=== PATIENT | female | born 1970 | race Caucasian/White ===

== ENCOUNTER 2017-08-07 17:10 | Emergency (ER) | payer OTHER ==
--- NOTE | 2017-08-07 17:33 | EDM.PDOC ---
ED HPI GENERAL MEDICAL PROBLEM - General Chief Complaint: General Stated Complaint: chills, fever, immuno suppressed Time Seen by Provider: 08/07/17 17:20 Source of Information: Reports: Patient, Old Records ([facility] chart/EMR) History Limitations: Reports: No Limitations - History of Present Illness INITIAL COMMENTS - FREE TEXT/NARRATIVE: The patient drove herself to the emergency room via private automobile for evaluation of nonspecific fever and chills with symptoms starting at about 11: 30 a.m. this morning. Note that the patient did have a fever of 100.2 at about 15:30 hours this afternoon with to OTC Aleve taken at that time. Patient did have her routine blood work this morning, which did show some significant leukopenia with WBCs of only 1.9 at that time. Her medical professionals recommended that she come to the emergency room for further evaluation to rule out any possible current infection. The patient denies any chest pain/pressure, heart flutter, dizziness, orthostasis, orthopnea, diaphoresis, paresthesias, recent decreased exercise tolerance, or any other anginal-type symptoms. No recent history of abdominal pain, heartburn, nausea, diarrhea, melena, gross hematochezia, or any food intolerance, including fatty foods, etc.. She denies any current gross hematuria, dysuria, colic, or other UTI symptoms. The patient also denies any recent cough, wheezing, dyspnea, etc.. No recent history of known exposure to infection. No history of recent visual changes, diplopia, change in mental status, or other change in neurological status, although nonspecific 6/10 bilateral frontal headache at this time similar to previous episodes. Onset: Today, Gradual Onset Date: 08/07/17 Onset Time: 11:30 Duration: Other (No pain) Quality: Reports: Ache, Same as Previous Episode Severity: Mild Improves with: Reports: None Worsens with: Reports: None Context: Reports: Other (As above) Associated Symptoms: Reports: Fever/Chills. Denies: Confusion, Chest Pain, Cough, Diaphoresis, Headaches, Loss of Appetite, Malaise, Nausea/Vomiting, Rash , Shortness of Breath, Syncope, Weakness Treatments OFFICE PROFESSIONAL: Reports: NSAIDS (As above) Headache Pain Score (Numeric/FACES): 6 - Related Data Allergies Allergy/AdvReac Type Severity Reaction Status Date / Time Sulfa (Sulfonamide Allergy Other Verified 08/07/17 17:14 Antibiotics) Home Meds: Home Meds Cholecalciferol (Vitamin D3) [Vitamin D3] 400 unit PO DAILY 07/20/17 [History] Citalopram [Citalopram HBr] 20 mg PO DAILY 07/20/17 [History] Ethinyl Estradiol/Drospirenone [[place]cell[place] 3 MG-0.03 MG] 1 each PO DAILY 07/20/17 [ History] Fish Oil/DHA/EPA [Fish Oil 1,200 MG] 2,400 mg PO DAILY 07/20/17 [History] Vitamin B Complex 1 each PO DAILY 07/20/17 [History] Tbo-Filgrastim [Granix] 300 mcg SUBCUT ASDIRECTED 08/07/17 [History] Past Medical History HEENT History: Reports: Impaired Vision, Other (See Below). Denies: Allergic Rhinitis, Cataract, Glaucoma, Hard of Hearing, Macular Degeneration, Retinal Detachment Other HEENT History: Patient wears glasses. Dry eye syndrome from Sjogren's syndrome. Cardiovascular History: Reports: None. Denies: Afib, Aneurysm, Arrhythmia, Blood Clots/VTE/DVT, CAD, Cardiomyopathy, Heart Murmur, High Cholesterol, Hypertension, [place], Syncope Respiratory History: Reports: COPD, Other (See Below). Denies: Intubation, Previous, PE, Sleep Apnea Other Respiratory History: COPD by chest x-ray Gastrointestinal History: Reports: GERD, Other (See Below). Denies: Celiac Disease, Cholelithiasis, Chronic Constipation, Chronic Diarrhea, Colon Polyp, Fecal Incontinence, Gastritis, GI Bleed, Hepatitis, Irritable Bowel Syndrome, Jaundice, Pancreatitis, PUD Other Gastrointestinal History: History of fungal distal esophagitis in June 2017 requiring hospitalization. Sjogren's syndrome. Genitourinary History: Reports: None. Denies: Acute Renal Failure, Chronic Renal Insuffiency, Renal Calculus, STD, Urinary Incontinence, UTI, Recurrent MEDICAL SONOGRAPHER History: Reports: , Spontaneous , Other (See Below). Denies: Dysfunctional Uterine Bleeding, Endometriosis : 3 Para: 2 LMP (Approximate): 2 Weeks Other OB/BYN History: First trimester SAB without procedures required. Otherwise , Full term without complications during pregnancies or deliveries Musculoskeletal History: Reports: Arthritis, Back Pain, Chronic, Fracture, Osteoarthritis, Other (See Below). Denies: Gout, RA, SLE Other Musculoskeletal History: Sjogren's syndrome. Right wrist fracture in 2001. Either third or fourth right metatarsal fracture in 1987. Neurological History: Reports: Headaches, Chronic. Denies: Cerebral Aneurysms, Concussion, CVA, Head Trauma, Migraines, MS, Parkinson's, Seizure, TIA Psychiatric History: Reports: Anxiety, Depression. Denies: Abuse, Victim of, ADD, ADHD, Addiction, Psych Hospitalization(s), Psychosis, PTSD, Suicide Attempt , Suicidal Ideation Endocrine/Metabolic History: Reports: None. Denies: Diabetes, Gestational, Diabetes, Type I, Diabetes, Type II, Diabetes Mellitus, Type 3c, Hypothyroidism , IDDM, Multinodular Thyroid Hematologic History: Reports: Other (See Below). 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 Denies: AIDS, HIV, SLE Other Immunologic History: Chronic leukopenia as above Oncologic (Cancer) History: Denies: Basal Cell Carcinoma, Breast, Cervix, Colon , Hodgkin's Lymphoma, Leukemia, Lymphoma, Malignant Melanoma, Non-Hodgkin's Lymphoma, Squamous Cell Carcinoma Dermatologic History: Reports: None. Denies: Eczema, Melanoma - Infectious Disease History Infectious Disease History: Reports: Chicken Pox. Denies: C-Difficile, Measles , Meningitis, Mononucleosis, MRSA, Mumps, Pertussis (Whooping Cough), Rheumatic Fever, Rubella, Scarlet Fever, Shingles, TB, VRE - Past Surgical History Head Surgeries/Procedures: Reports: None HEENT Surgical History: Reports: Oral Surgery, Other (See Below). Denies: Adenoidectomy, Cataract Surgery, Eye Surgery, Laser Surgery, LASIK, Myringotomy w Tube(s), Naso-Sinus Surgery, Polypectomy, Tonsillectomy Other HEENT Surgeries/Procedures: [place] teeth extraction 4 in 2003 Cardiovascular Surgical History: Reports: None. Denies: Varicose Respiratory Surgical History: Reports: None. Denies: Thoracentesis GI Surgical History: Reports: Appendectomy, EGD, Other (See Below). Denies: Cholecystectomy, Colonoscopy, Hernia, Abdominal, Hernia, Inguinal, Hernia Repair /Other, Polypectomy Other GI Surgeries/Procedures: Appendectomy at age 15. EGD in June 2017. Female Surgical History: Reports: Other (See Below). Denies: Breast Biopsy, Section, D&C, Hysterectomy, Salpingo-Oophorectomy, Tubal Ligation Other Female Surgeries/Procedures: Left Renal kidney donation in 2006 Endocrine Surgical History: Reports: None. Denies: Thyroid Biopsy Neurological Surgical History: Reports: None. Denies: C-Spine, Discectomy, Laminectomy, Lumbar Spine, Sacral Spine, Spinal Fusion, Vertebroplasty Musculoskeletal Surgical History: Reports: None. Denies: Arthroscopic Procedure , Carpal Tunnel, Ganglion Cyst, Joint Replacement, ORIF, Shoulder Surgery Oncologic Surgical History: Reports: Bone Marrow Aspiration, Other (See Below) Other Oncologic Surgeries/Procedures: Bone marrow needle aspiration biopsy in July 2017 for workup of her leukopenia Dermatological Surgical History: Reports: None - Past Imaging History Past Imaging History: Reports: CAT Scan (CT of the chest in June 2017) Social & Family History - Tobacco Use Smoking Status *Q: Never Smoker Tobacco Use Within Last Twelve Months: No Used Tobacco, but Quit: No Smoking Cessation Information Provided To Patient: No Second Hand Smoke Exposure: No Second Hand Smoke Education Provided: No - Caffeine Use Caffeine Use: Reports: Coffee (20 ounces per day). Denies: Energy Drinks, Soda , Tea - Alcohol Use Alcohol Use History: Yes Days Per Week of Alcohol Use: 1 (No previous DWIs, problems with alcohol abuse, etc.) Number of Drinks Per Day: 2 (Usually wine) Total Drinks Per Week: 2 Alcohol Use in Last Twelve Months: Yes Alcohol Use Frequency: Weekly - Recreational Drug Use Recreational Drug Use: No Drug Use in Last 12 Months: No Recreational Drug Type: Denies: Amphetamines (Speed), Cocaine, Heroin, Inhalants (Glues, Solvents, Aerosols), LSD (Acid), Marijuana/Hashish, Methamphetamine, Morphine, Oxycodone - Living Situation & Occupation Living situation: Reports: (2000, 2 children), with Family Occupation: Employed (case work aide) ED ROS GENERAL - Review of Systems Review Of Systems: ROS reveals no pertinent complaints other than HPI. ED EXAM, GENERAL - Physical Exam Exam: See Below Exam Limited By: No Limitations General Appearance: Alert, WD/WN, No Apparent Distress Eye Exam: Bilateral Eye: EOMI, Normal Inspection, PERRL Ears: Normal External Exam, Normal Canal, Hearing Grossly Normal, Normal TMs Nose: Normal Inspection, Normal Mucosa, No Blood Throat/Mouth: Normal Inspection, Normal Lips, Normal Teeth, Normal Gums, Normal Oropharynx, Normal Voice, No Airway Compromise. No: Dysphagia, Inflammation, Perioral Cyanosis Head: Atraumatic, Normocephalic. No: Facial Swelling, Facial Tenderness, Sinus Tenderness Neck: Normal Inspection, Supple, Non-Tender, Full Range of Motion. No: Lymphadenopathy (L), Lymphadenopathy (R), Thyromegaly Respiratory/Chest: No Respiratory Distress, Lungs Clear, Normal Breath Sounds, No Accessory Muscle Use, Chest Non-Tender. No: Pleural Rub, Retractions Cardiovascular: Normal Peripheral Pulses, Regular Rate, Rhythm, No Edema, No Gallop, No JVD, No Murmur, No Rub. No: Gallop/S3, Gallop/S4, Friction Rub Peripheral Pulses: 2+: Radial (L), Radial (R) GI/Abdominal: Normal Bowel Sounds, Soft, Non-Tender, No Organomegaly, No Distention, No Abnormal Bruit, No Mass, Pelvis Stable. No: Guarding (Female) Exam: Deferred Rectal (Female) Exam: Deferred Back Exam: Normal Inspection, Full Range of Motion. No: CVA Tenderness (L), CVA Tenderness (R), Muscle Spasm Extremities: Normal Inspection, Normal Range of Motion, Non-Tender, No Pedal Edema, Normal Capillary Refill. No: Joselo's Sign Neurological: Alert, Oriented, CN II-XII Intact, Normal Cognition, Normal Gait, No Motor/Sensory Deficits, Other (No clinical orthostasis) Psychiatric: Normal Affect, Normal Mood Skin Exam: Warm, Dry, Intact, Normal Color, No Rash. No: Diaphoretic, Ecchymosis, Lymphangitis, Petechiae, Wound/Incision Lymphatic: No Adenopathy Course - Vital Signs Last Recorded V/S: Last Vital Signs Temp 36.8 C 08/07/17 17:14 Pulse 86 08/07/17 17:14 Resp 20 08/07/17 17:14 BP 103/64 08/07/17 17:14 Pulse Ox 97 08/07/17 17:14 Vital Signs - 24 hr 08/07/17 17:14 Temperature [ 36.8 C Oral] Pulse, 86 Peripheral [ Brachial] Respiratory 20 Rate Blood Pressure 103/64 [Upper Arm] O2 Sat by Pulse 97 Oximetry - Orders/Labs/Meds Orders: Active Orders 24 hr Category Date Time Status Chest 2V [CR] Urgent Exams 08/07/17 17:33 Ordered CULTURE BLOOD [BC] Stat Lab 08/07/17 17:35 Ordered CULTURE BLOOD [BC] Stat Lab 08/07/17 17:45 Received CULTURE STREP A CONFIRMATION [RM] Stat Lab 08/07/17 18:00 Results CULTURE URINE [RM] Routine Lab 08/07/17 17:33 Ordered STREP SCRN A RAPID W CULT CONF [RM] Stat Lab 08/07/17 17:35 Ordered Blood Culture x2 Reflex Set [OM.PC] Urgent Oth 08/07/17 17:33 Ordered Obtain Past Medical Record [OM.PC] Routine Oth 08/07/17 17:35 Active Labs: Laboratory Tests 08/07/17 08/07/17 08/07/17 Range/Units 17:45 17:45 18:07 Sodium 136 (136-145) mmol/L Potassium 4.1 (3.5-5.1) mmol/L Chloride 100 (98-107) mmol/L Carbon Dioxide 26.6 (21.0-32.0) mmol/L BUN 10 (7-18) mg/dL Creatinine 0.72 (0.51-1.17) mg/dL Est Cr Clr Drug Dosing 87.85 mL/min Estimated GFR (MDRD) > 60 mL/min Glucose 109 H (74-106) mg/dL Lactic Acid 1.5 (0.4-2.0) mmol/L Calcium 9.1 (8.5-10.1) mg/dL Total Bilirubin 0.2 (0.2-1.0) mg/dL AST 35 (15-37) U/L ALT 30 (12-78) U/L Alkaline Phosphatase 83 (46-116) IU/L Total Protein 8.4 H (6.4-8.2) g/dL Albumin 3.1 L (3.4-5.0) g/dL Specimen Type Urincc Urine Color Yellow Urine Appearance Clear Urine pH 7.0 (5.0-9.0) Ur Specific [place] 1.010 (1.005-1.030) Urine Protein Negative (NEGATIVE) mg/dL Urine Glucose (UA) Negative (NEGATIVE) mg/dL Urine Ketones Negative (NEGATIVE) mg/dL Urine Occult Blood Negative (NEGATIVE) Urine Nitrite Negative (NEGATIVE) Urine Bilirubin Negative (NEGATIVE) Urine Urobilinogen 1.0 (0.2-1.0) E.U./dL Ur Leukocyte Esterase Negative (NEGATIVE) Urine RBC 0-5 /HPF Urine WBC 0-5 /HPF Ur Epithelial Cells Few /LPF Urine Bacteria Few (NONE TO FEW) /HPF CBC earlier this morning showed WBCs of 1.9 with hemoglobin of 12.1, MCV 88.5, platelets 253, elevated RDW of 15.9, decreased neutrophils of 5.7% and increased lymphocytes of 69.8% Blood cultures 2 and urine specimens collected for culture and sensitivity Microbiology 08/07/17 18:00 Group A Streptococcus Rapid Screen - Final Throat NEGATIVE STREP A SCREEN 08/07/17 18:00 Influenza Type A Antigen Screen - Final Nasal, Left NEGATIVE INFLUENZA A VIRUS AG Influenza Type B Antigen Screen - Final NEGATIVE INFLUENZA B VIRUS AG Meds: None - Radiology Interpretation Free Text/Narrative:: Chest x-ray, PA and lateral, shows mild COPD changes with no pulmonary infiltrates, pneumothorax, etc. Mild osteoarthritic changes noted. Somewhat small and hypoplastic heart. Departure - Departure Time of Disposition: 18:45 Disposition: Home, Self-Care 01 Condition: Good Clinical Impression: Leukopenia, Peptic reflux disease, COPD (chronic obstructive pulmonary disease) , Mixed anxiety depressive disorder, Sjogrens syndrome, Hypoalbuminemia - Discharge Information Referrals: Carlene Khoury MD [Primary Care Provider] - Forms: ED Department Discharge Additional Instructions: 1. Follow up with your regular provider in 7-10 days as needed, if symptoms persist. 2. Hygiene precautions and avoidance infections as previously recommended 3. Otherwise follow-up with your medical professionals as already scheduled - Problem List & Annotations (1) Leukopenia SNOMED Code(s): 13123114, 417974655 Code(s): D72.819 - DECREASED WHITE BLOOD CELL COUNT, UNSPECIFIED Status: Acute Priority: High Onset Date: 08/07/17 Annotation/Comment:: Mild low- grade fever today, improved from earlier Aleve therapy as above. Likely mild beginning URI with very borderline sinus headaches. Observe for now. Continue close follow-up by her medical professionals and regular provider. Her Granix injection is already ordered and scheduled in this facility for tomorrow. Hygiene issues, etc. discussed. She is not currently working secondary to her leukopenia. Qualifiers: Leukopenia type: neutropenia Neutropenia type: other Qualified Code(s): D70.8 - Other neutropenia (2) COPD (chronic obstructive pulmonary disease) SNOMED Code(s): 65395531 Code(s): J44.9 - CHRONIC OBSTRUCTIVE PULMONARY DISEASE, UNSPECIFIED Status : Chronic Priority: Medium Annotation/Comment:: Stable by history with no significant bronchitic type symptoms despite low-grade fever at this time. Note chest x-ray results as above. Qualifiers: COPD type: emphysema Emphysema type: panlobular Qualified Code(s): J43.1 - Panlobular emphysema (3) Mixed anxiety depressive disorder SNOMED Code(s): 048795815 Code(s): F41.8 - OTHER SPECIFIED ANXIETY DISORDERS Status: Chronic Priority: Medium Annotation/Comment:: Stable by history (4) Peptic reflux disease SNOMED Code(s): 892706355 Code(s): K21.9 - GASTRO-ESOPHAGEAL REFLUX DISEASE WITHOUT ESOPHAGITIS Status: Chronic Priority: Medium Annotation/Comment:: Stable by history (5) Hypoalbuminemia SNOMED Code(s): 701946340 Code(s): E88.09 - OTH DISORDERS OF PLASMA-PROTEIN METABOLISM, NEC Status: Acute Priority: Medium Onset Date: 08/07/17 Annotation/Comment:: Observe for now. Consider high-protein Glucerna supplements. (6) Sjogrens syndrome SNOMED Code(s): 67047093 Code(s): M35.00 - SICCA SYNDROME, UNSPECIFIED Status: Chronic Priority: Medium Annotation/Comment:: Stable by patient history Qualifiers: Sjogren's organ involvement: unspecified organ involvement Qualified Code(s ): M35.00 - Sicca syndrome, unspecified - Problem List Review Problem List Initiated/Reviewed/Updated: Yes - My Orders Last 24 Hours: My Active Orders 08/07/17 17:33 Chest 2V [CR] Urgent CULTURE URINE [RM] Routine Blood Culture x2 Reflex Set [OM.PC] Urgent 08/07/17 17:35 CULTURE BLOOD [BC] Stat STREP SCRN A RAPID W CULT CONF [RM] Stat Obtain Past Medical Record [OM.PC] Routine 08/07/17 17:45 CULTURE BLOOD [BC] Stat 04/30/18 18:00 CULTURE STREP A CONFIRMATION [RM] Stat - Assessment/Plan Last 24 Hours: My Active Orders 08/07/17 17:33 Chest 2V [CR] Urgent CULTURE URINE [RM] Routine Blood Culture x2 Reflex Set [OM.PC] Urgent 08/07/17 17:35 CULTURE BLOOD [BC] Stat STREP SCRN A RAPID W CULT CONF [RM] Stat Obtain Past Medical Record [OM.PC] Routine 08/07/17 17:45 CULTURE BLOOD [BC] Stat 08/07/17 18:00 CULTURE STREP A CONFIRMATION [RM] Stat Assessment:: As above Plan: As above. Extensive precautions were given to the patient, who is in agreement with the treatment plan. See Patient Instructions for further treatment and plan.
[2017-08-07 18:04] LABS: CHLORIDE,CL 100 mmol/L (98-107); SODIUM,NA 136 mmol/L (136-145)
== END 2017-08-07 18:45 | disposition home or self-care (01) ==
LOC: LL.ED 17:10
DX: D72.819 Decreased white blood cell count, unspecified (principal); J44.9 Chronic obstructive pulmonary disease, unspecified; F41.8 Other specified anxiety disorders; K21.9 Gastro-esophageal reflux disease without esophagitis; M35.00 Sjogren syndrome, unspecified; E88.09 Other disorders of plasma-protein metabolism, not elsewhere classified; Z88.2 Allergy status to sulfonamides; Z79.899 Other long term (current) drug therapy
CPT/HCPCS: 36415; 71046; 80053; 81001; 83605; 87040; 87081; 87086; 87430; 87804; 99284

== ENCOUNTER 2023-12-28 16:24 | Emergency (ER) | payer BC | END 2023-12-28 17:20 | disposition home or self-care (01) | LOC: LL.ED 16:24 | DX: S01.81XA Laceration without foreign body of other part of head, initial encounter (principal); J44.9 Chronic obstructive pulmonary disease, unspecified; Z79.899 Other long term (current) drug therapy; Z88.2 Allergy status to sulfonamides; W55.12XA Struck by horse, initial encounter | CPT/HCPCS: 12013; 99282 ==